=== PATIENT | male | born 1990 | race Two or more races ===

== ENCOUNTER 2021-03-25 07:20 | Emergency (ER) | payer OTHER ==
[~2021-03-25] VITALS: Ht 182.9 cm; Wt 70.8 kg
[2021-03-25] MEDS ORDERED: SYNTHROID50 MCG PO (07:36)
== END 2021-03-25 15:59 ==
LOC: ER 07:20
DX: B34.9 Viral infection, unspecified (principal); J06.9 Acute upper respiratory infection, unspecified; Z03.818 Encounter for observation for suspected exposure to other biological agents ruled out

== ENCOUNTER 2023-03-13 14:31 | Emergency (ER) | payer OTHER ==
[~2023-03-13] VITALS: Ht 182.9 cm; Wt 81.6 kg
[~2023-03-13 14:31] MED LIST: SYNTHROID50 MCG PO
== END 2023-03-13 17:05 | disposition home or self-care (01) ==
LOC: ER 14:31
DX: U07.1 COVID-19 (principal)